=== PATIENT | male | born 1985 | race Caucasian/White ===

== ENCOUNTER 2017-03-12 09:46 | Emergency (ER) | payer SELFPAY ==
[~2017-03-12] VITALS: Ht 175.3 cm; Wt 113.4 kg
[2017-03-12 10:13] LABS: Basophils # (auto) 0.1 uL; Basophils % (auto) 0.7 % (0.0-2.0); Eosinophils # (auto) 0.2 uL; Eosinophils % (auto) 1.9 % (0.0-7.0); Hematocrit 49.7 % (41.0-53.0); Hemoglobin 16.8 g/dL (13.5-17.5); Lymphocytes # (auto) 2.3 uL; Lymphocytes % (auto) 21.8 % (10.0-50.0); Mean Corpuscular Hemoglobin 29.1 pg (28.0-32.0); Mean Corpuscular Hgb Conc. 33.9 g/dL (32.0-36.0); Mean Corpuscular Volume 85.9 fL (80.0-100.0); Mean Platelet Volume 9.9 fL (7.4-10.4); Monocytes # (auto) 0.6 uL; Monocytes % (auto) 5.7 % (0.0-12.0); Neutrophils # (auto) 7.5 uL; Neutrophils % (auto) 69.9 % (37.0-80.0); Platelet Count (auto) 293 10^3/uL (140-450); Red Cell Distribution Width 13.6 % (11.6-16.0); White Blood Cell 10.7 10^3/uL (4.4-10.8)
[2017-03-12 10:41] LABS: Albumin 4.8 g/dL (3.4-5.0); Alkaline Phosphatase 93 U/L (45-117); Anion Gap 8 (5-15); Aspartate Aminotransferase 17 U/L (15-37); BUN/Creatinine Ratio 18.4; Bilirubin, Total 0.9 mg/dL (0.2-1.0); Blood Urea Nitrogen 18 mg/dL (7-18); Calcium 9.6 mg/dL (8.5-10.1); Carbon Dioxide 28 mmol/L (21-32); Chloride 100 mmol/L (98-107); GFR African American 114 mL/min; GFR Non-African American 94 mL/min; Glucose 95 mg/dL (74-106); Magnesium 2.5 mg/dL (1.6-2.6); Sodium 136 mmol/L (136-145); Total Protein 9.5 g/dL (6.4-8.2)
[2017-03-12 12:09] VITALS: BP 119/72
== END 2017-03-12 13:21 | disposition home or self-care (01) ==
LOC: ER 09:50
DX: R07.89 Other chest pain (principal); R53.1 Weakness; T88.7XXA Unspecified adverse effect of drug or medicament, initial encounter; I10 Essential (primary) hypertension; Y92.89 Other specified places as the place of occurrence of the external cause
CPT/HCPCS: 36415; 71020; 80053; 83735; 84484; 85025; 93005